=== PATIENT | male | born 1955 | race African-American/Black ===

== ENCOUNTER 2016-11-25 12:11 | Day surgery (SDC) | payer OTHER ==
[2016-11-25] VITALS (7 sets, daily range): BP systolic 102–141; BP diastolic 59–82; PULSE 63–83; TEMP 97.6–98.3
[~2016-11-25] VITALS: Ht 175.3 cm; Wt 90.9 kg
== END 2016-11-25 16:30 | disposition home or self-care (01) ==
LOC: SDCO 12:11
DX: N42.32 Atypical small acinar proliferation of prostate (principal); R97.20 Elevated prostate specific antigen [PSA]; Q07.00 Arnold-Chiari syndrome without spina bifida or hydrocephalus; E78.00 Pure hypercholesterolemia, unspecified; Z80.42 Family history of malignant neoplasm of prostate
CPT/HCPCS: J0690; J1100; J2250; J2405; J2704; J3010; J7120

== ENCOUNTER → 2021-01-06 | Outpatient (CLI) | payer OTHER | LOC: COL.RAD 12:44 | DX: R42 Dizziness and giddiness (principal) ==